=== PATIENT | male | born 1965 | race Two or more races ===

== ENCOUNTER → 2016-10-08 | Outpatient (CLI) | payer SELFPAY ==
--- NOTE | 2016-10-08 15:56 | DI ---
PA /LATERAL CHEST X-RAY, 10/08/2016 3:03 PM : Clinical History: Cough Previous Exam: January 24, 2016 There is no acute soft tissue or bony abnormality. Heart size is normal. Lungs are clear. Mediastinal structures are normal. There are no pulmonary nodules. There is subsegmental atelectasis in the right lung base with some stable subsegmental atelectasis in the left lung base. IMPRESSION: New subsegmental atelectasis in the right lung base otherwise unremarkable.
== END ==
LOC: RAD 15:06
PROVIDERS: ATTEND Physician Assistant Medical
DX: R05 Cough (principal); R06.02 Shortness of breath
CPT/HCPCS: 71020

== ENCOUNTER 2018-05-13 10:44 | Observation (INO) ==
[2018-05-13] MEDS ORDERED: Sodium Chloride 0.9% 1,000 ML PRIMARY IV ONE (11:42)
[2018-05-13 11:55] LABS: BASOPHILS # (AUTO) 0.05 10*3/UL; BASOPHILS % (AUTO) 0.4 % (0-1); EOSINOPHILS # (AUTO) 0.29 10*3/UL; EOSINOPHILS % (AUTO) 2.2 % (0-8); Hematocrit [HCT] 47.3 % (42.0-52.0); Hemoglobin [HGB] 16.3 g/dL (14.0-18.0); LYMPHOCYTES # (AUTO) 2.54 10*3/uL; MEAN CORPUSCULAR HGB CONC 34.5 g/dL (33-37); MEAN CORPUSCULAR VOLUME 90.1 FL (80-90); MEAN PLATELET VOLUME 9.3 FL (7.4-12.2); MONOCYTES # (AUTO) 0.72 10*3/UL (0.3-0.8); MONOCYTES % (AUTO) 5.6 % (5-15); NEUTROPHILS # (AUTO) 9.26 10*3/UL; NEUTROPHILS % (AUTO) 71.4 % (50-80); RED BLOOD COUNT 5.25 10^6/uL (4.70-6.10)
[2018-05-13 12:11] LABS: BLOOD UREA NITROGEN 12 mg/dL (7-22); BUN/CREATININE RATIO 13.33 (6-20); SERUM ALBUMIN 4.2 g/dL (3.5-4.8)
[2018-05-13 12:14] LABS: PLATELET MORPHOLOGY COMMENT NORMAL MORPHOLOGY (NORM); RBC MORPHOLOGY COMMENT NORMAL MORPHOLOGY (NORM); WBC MORPHOLOGY COMMENT NORMAL MORPHOLOGY (NORM)
--- NOTE | 2018-05-13 13:06 | DI ---
MRI BRAIN SCAN WITHOUT IV CONTRAST, 05/13/2018 11:45 AM: Clinical History: stroke symptoms; left sided weakness; off balance Previous Exam: None at this facility. Sequences: Sagittal T1; Axial YA T2 and FLAIR. Axial diffusion weighted images with ADC mapping were also performed. The 4th, 3rd, and lateral ventricles are of normal size, shape, position, and contour for this patien t's age. There are are a few 3 mm punctate foci of hyperintensity located in each frontal lobe and in the left basal ganglia of uncertain etiology or clinical significance. There is no evidence of an ac reese hemorrhagic or bland infarct. There is no cerebellar pontine angle mass. Mild cerebral atrophy is present. Diffusion weighted imaging with ADC mapping is normal. There are no extracerebral mantels o r shift of the midline structures. The paranasal sinuses are normal. Readin. There is no acute hemorrhagic or bland infarct. No cerebellar pontine angle mass is noted. There is no mass in the posterior fossa or evidence of a medullary infarct to account for the patient's bal ance abnormalities. 2. There are small punctate hyperintensities in the white matter of both frontal lobes and there is a similar lesion in the left basal ganglia. The origin and clinical significance of these findings is uncertain. 3. Mild cerebral atrophy. 4. Diffusion weighted imaging with ADC mapping is normal.
--- NOTE | 2018-05-13 13:15 | DI ---
LEFT KNEE, 05/13/2018 11:47 AM: Clinical History: Left knee pain. Previous Exam: 11/29/2017. 3 views are submitted. There is no acute soft tissue, osseous, or joint abnormality. There are puncta te calcifications anteriorly in the intercondylar notch and these were present on the prior exam. The y would be consistent with previous injury to the ACL. Reading: There is no acute fracture or dislocation. There are calcifications in the intercondylar notch probab ly related to a previous injury to the ACL.
[2018-05-13 13:41] LABS: BILIRUBIN,URINE NEGATIVE (NEG); CLARITY,URINE CLEAR (CLEAR); COLOR,URINE YELLOW (Y); OCCULT BLOOD,URINE Trace-intact (NEG); PROTEIN,URINE NEGATIVE (NEG); UROBILINOGEN,URINE 0.2 EU/dL (0.2)
[2018-05-13 13:57] LABS: GLUCOSE, URINE (UA) >=1000 mg/dL (NEG); SQUAMOUS EPITHELIAL CELL,UR RARE; URINE SAMPLE TYPE CLEAN CATCH URINE
--- NOTE | 2018-05-13 14:24 | DI ---
AP /LATERAL CHEST, 05/13/2018 11:42 AM : Clinical History: Cough. Stroke symptoms. Previous Exam: 10/08/2016. Multiple films are obtained and there is respiratory motion artifact on all films. There is no obviou s acute soft tissue or bony abnormality. Heart size is normal. There is discoid atelectasis in the ri ght costophrenic angle. No acute infiltrate or effusion is present. Mediastinal structures are normal . The films cannot be evaluated adequately for identification of small nodules. There is no large portia g mass present. Readin. Suboptimal study because of respiratory motion artifacts. 2. There is no acute infiltrate or effusion.
[2018-05-13] MEDS ORDERED: CALCIUM CARBONATE 500 MG (TUMS) CHEWABLE TABLET PO PRN (16:34)
[2018-05-13] MEDS ORDERED: ONDANSETRON 4 MG/2 ML VIAL IVP PRN (16:34)
[2018-05-13] MEDS ORDERED: ACETAMINOPHEN 325 MG TABLET PO PRN (16:34)
[2018-05-13] MEDS ORDERED: DOCUSATE 100 MG CAPSULE PO PRN (16:34)
[2018-05-13] MEDS ORDERED: LIDOCAINE W/ SODIUM BICARB 0.5 ML SYR SUBD PRN (16:34)
[2018-05-13] MEDS ORDERED: Sodium Chloride 0.9% 1,000 ML PRIMARY IV SCH (16:45)
--- NOTE | 2018-05-13 16:48 | PDOC ---
HPI - History of Present Illness Date of Service: 05/13/18 Time of Service: 16:00 Chief Complaint: Unsteadiness when standing up that started today History of Present Illness: This is a 52 years old male with medical history significant for history of diabetes, hypertension, sleep apnea on CPAP, depression/anxiety, asthma, gout admission in 2016 for perforated diverticular disease that needed colostomy who presented to the hospital with history of unsteadiness that started this morning. He said he woke up this morning about 4 AM because of some pain in his knee and back he took his medications and that included a new medication ertugliflozin that was prescribed by Dr. Bronson and today was the first time that he took it a few hours after that as he stood up he felt unsteady on his feet and then he fell back and sat on the other chair his thinking was not clear he had difficulty saying the words he felt confused and because of that he was brought to the ER. He had multiple tests they were negative and because of persistent symptoms he was admitted. He said he's feeling better now in terms of his thinking it is more clear and he said earlier he couldn't tell the whole story of what happened. He still feel unsteady on his feet and dizzy he said when he stands up but not while laying in bed. He denied chest pain or shortness of breath. He think maybe the medication which he took for the first time responsible for his symptoms. This is the first time that he had these symptoms. He said he is weak on his left leg since he had a fracture of the patella back in December. He doesn't think that he is weak in his arms. No vomiting or nausea or diarrhea. Past Medical History Medical History: 1. Diabetes mellitus type II. 2. Depression/anxiety the patient was placed on Lamictal and Ativan in the setting of his 's 5 years ago. He does not have a seizure disorder. 3. HTN for an unknown period of time. 4. Gout. 5. Sleep apnea. 6. Diabetic neuropathy. 7. Hyperlipidemia. 8. Diverticulitis. 9. Asthma/bronchitis. 10. Perforated diverticular disease that needed emergency surgery in 2016 he ended up with a colostomy Surgical History: 1. partial colectomy with end colostomy and closure of distal segment. (Clemente procedure). 2. Appendectomy Pertinent Family History: Significant for diabetes Past Social History: . Currently not working and he is living with his daughter. He used to smoke now sometimes chew tobacco and occasionally drinks no drugs. Tobacco Use: Former Smoker In the Past 12 Months, Have Used or Abuse Any of the Following Substance: None Medication / Allergies Home Medications: Home Medications 3 Medication Instructions Recorded Confirmed Type Albuterol Sulfate [Proair Hfa] 2 puff INH Q4-6H PRN #3 inh 05/07/17 05/13/18 History bisoprolol 5 1 tab PO QDAY #30 tab 11/13/17 05/13/18 Rx mg-hydrochlorothiazide 6.25 mg tablet lamotrigine 200 mg tablet 200 mg PO BID #60 tab 11/18/17 05/13/18 Rx meloxicam 15 mg tablet 15 mg PO QDAY 12/18/17 05/13/18 History duloxetine 30 mg capsule,delayed 30 mg PO BID #60 cap 03/03/18 05/13/18 Rx release gabapentin 300 mg capsule 600 mg PO TID #180 cap 04/16/18 05/13/18 Rx ertugliflozin 5 mg tablet 5 mg PO DAILY #90 Samples 05/07/18 05/13/18 Sample lorazepam 2 mg tablet 2 mg PO TID PRN #90 tab 05/07/18 05/13/18 Rx zolpidem 10 mg tablet 5 mg PO QHS PRN #30 tab 05/07/18 05/13/18 Rx Allergies/Adverse Reactions: Allergies 3 Allergy/AdvReac Type Severity Reaction Status Date / Time No Known Drug Allergies Allergy NOT Verified 05/13/18 11:12 APPLICABLE Review of Systems - Review of Systems All Systems: Reviewed & No Additional Complaints Except as Stated Exam - Vitals Vital Signs: Vital Signs Temperature 97.3 F Temperature Source Temporal Artery Scan Pulse Rate [Pulse Oximeter] 74 Pulse Rate 75 Respiratory Rate 20 Blood Pressure [Right Arm] 144/89 Blood Pressure 142/79 Pulse Ox 93 Oxygen Delivery Method Room Air Height 5 ft 10 in Weight 326 lb - General General Appearance: No Acute Distress, Cooperative, Morbidly Obese - Head Head Exam: Normal Inspection, Atraumatic - Eye Eye Exam: POSITIVE: Normal Appearance - ENT ENT Exam: POSITIVE: Normal Exam - Neck Neck Exam: Normal Inspection - Respiratory Respiratory Exam: POSITIVE: Clear to Auscultation - Bilaterally - Cardiovascular Cardiovascular Exam: POSITIVE: RRR - GI/Abdominal GI/Abdominal Exam: POSITIVE: Normal Bowel Sounds, Non Tender, Non Distended, Soft, No Organomegaly Additional GI/Abdominal Exam Details: Colostomy in place - Rectal Rectal Exam: POSITIVE: Deferred - External Exam: POSITIVE: Deferred - Extremities Extremities Exam: POSITIVE: Normal Inspection - Back Back Exam: POSITIVE: Normal Inspection - Neurological Neurological Exam: POSITIVE: Alert, Oriented x 3, CN II-XII Intact, No Facial Droop, Speech Intact / Clear Additional Neurological Exam Details: On neurological examination he has some weakness in the left leg that included flexion and knee flexion and extension and dorsal flexion and extension but he attributed that to the incident that happened back in December when he fell and broke his patella. There is some slight difference in hand material specialist on the left over to himself he doesn't think that he is weak on the left side. - Psychiatric Psychiatric Exam: POSITIVE: Normal Affect - Integumentary Integumentary Exam: POSITIVE: Normal Color Results - Labs CBC and BMP: 05/13/18 11:45 05/13/18 11:45 - Imaging Status: Report Reviewed by Me (MRI 1. There is no acute hemorrhagic or bland infarct. No cerebellar pontine angle mass is noted. There is no mass in the posterior fossa or evidence of a medullary infarct to account for the patient's balance abnormalities. 2. There are small punctate hyperintensities in the white matter of both frontal lobes and there is a similar lesion in the left basal ganglia. The origin and clinical significance of these findings is uncertain. 3. Mild cerebral atrophy. 4. Diffusion weighted imaging with ADC mapping is normal. Knee X ray There is no acute fracture or dislocation. There are calcifications in the intercondylar notch probably related to a previous injury to the ACL. Chest X ray 1. Suboptimal study because of respiratory motion artifacts. 2. There is no acute infiltrate or effusion.) Assessment and Plan - Patient Problems (1) Dizziness Current Visit: Yes Status: Acute Comment: His dizziness and unsteadiness is of unclear etiology. Not clear whether this medication is responsible for it I think we'll take him off the medication I told him that will watch him give him some fluid will put him back on the rest of his medication and then will see how his symptoms tomorrow. We' ll ask physical therapy to work with him tomorrow. We'll check orthostatics. Code(s): R42 - Dizziness and giddiness (2) Benign hypertension Current Visit: No Status: Acute Onset Date: 01/19/14 Comment: Continue previous medications Code(s): I10 - Essential (primary) hypertension (3) Diabetes mellitus Current Visit: No Status: Acute Onset Date: 01/19/14 Comment: We'll watch his blood sugar and will put him on metformin he said he ran out on the metformin few days ago. Code(s): E11.9 - Type 2 diabetes mellitus without complications Qualifiers: Diabetes mellitus type: type 2 Diabetes mellitus group home insulin use: without group home use Diabetes mellitus complication status: without complication Qualified Code(s): E11.9 - Type 2 diabetes mellitus without complications (4) Anxiety Current Visit: Yes Status: Acute Comment: Continue his previous medications Code(s): F41.9 - Anxiety disorder, unspecified
[2018-05-13] MEDS: metFORMIN 500 MG TABLET PO SCH (17:15)
--- NOTE | 2018-05-13 17:36 | EKG ---
[address] [address] Measurements Intervals [place] Rate: 76 P: 38 WI: 148 QRS: 1 QRSD: 95 T: 57 QT: 364 QTc: 395 Interpretive Statements SINUS RHYTHM Compared to ECG 01/27/2016 08:23:09 Short [place] interval no longer present Electronically Signed On 05-13-18 17:48:21 MDT by Rip Thomas [email or web address]
[2018-05-13] MEDS: GABAPENTIN 300 MG CAPSULE PO SCH (20:57)
[2018-05-13] MEDS: lamoTRIgine 100 MG TABLET PO SCH (20:57)
[2018-05-13] MEDS: LORazepam 1 MG TABLET PO PRN (20:57)
[2018-05-13] MEDS ORDERED: ZOLPIDEM 10 MG TABLET PO PRN (21:00)
[2018-05-13] MEDS: IPRATROPIUM/ALBUTEROL SULFATE 3 ML NEB NEB PRN (22:34)
[2018-05-14] MEDS ORDERED: GUAIFENESIN 600 MG TABLET PO PRN (02:02)
[2018-05-14 05:19] LABS: BASOPHILS # (AUTO) 0.05 10*3/UL; BASOPHILS % (AUTO) 0.5 % (0-1); EOSINOPHILS # (AUTO) 0.33 10*3/UL; EOSINOPHILS % (AUTO) 3.2 % (0-8); Hematocrit [HCT] 40.6 % (42.0-52.0); Hemoglobin [HGB] 13.9 g/dL (14.0-18.0); LYMPHOCYTES # (AUTO) 2.85 10*3/uL; MEAN CORPUSCULAR HEMOGLOBIN 31.3 PG (27-31); MEAN CORPUSCULAR HGB CONC 34.2 g/dL (33-37); MEAN CORPUSCULAR VOLUME 91.4 FL (80-90); MEAN PLATELET VOLUME 9.3 FL (7.4-12.2); MONOCYTES # (AUTO) 0.62 10*3/UL (0.3-0.8); NEUTROPHILS # (AUTO) 6.32 10*3/UL; NEUTROPHILS % (AUTO) 61.7 % (50-80); PLATELET MORPHOLOGY COMMENT NORMAL MORPHOLOGY (NORM); RBC MORPHOLOGY COMMENT NORMAL MORPHOLOGY (NORM); RED BLOOD COUNT 4.44 10^6/uL (4.70-6.10); WBC MORPHOLOGY COMMENT NORMAL MORPHOLOGY (NORM)
--- NOTE | 2018-05-14 06:01 | PDOC ---
General Adult HPI - General Chief Complaint: General Medical Stated Complaint: UNSTEADY ON FEET Date Seen by Provider: 05/13/18 Time Seen by Provider: 10:50 Source: POSITIVE: Patient, EMS, Other (Father) Exam Limitations: POSITIVE: No limitations Nurse's Notes Reviewed & Considered: Yes EMS Report Reviewed & Considered: Verbal - History of Present Illness Initial Comment: The patient is a 52-year-old male. He is brought to the emergency room by ambulance. He states that this morning he attempted to stand up and states that his "balance was off" and he could not ambulate. He also describes generalized weakness and states that he is "too weak to stand". He denies any sensation of spinning or vertigo. No head chest or abdominal pain. He also complains of an exacerbation of chronic left knee pain, which he states he injured several months ago when he slipped on the ice attempting to get out of his truck. He states he has a sensation of confusion and "I have a hard time remembering things. Patient has a colostomy due to a perforated bowel 2 years ago. He has a history of morbid obesity. No difficulty swallowing or speaking. He thinks he may have some weakness to his left upper extremity and he describes "tremors" to his right hand. No fevers or chills. He has not had any recent falls. He does complain of a vague headache, poorly localized. No chest or abdominal pain. Have you received a tetanus shot in the past 10 years?: Unknown Body Location Affected: REPORTS: Lower Extremity (L) (Left knee), Other ( Generalized weakness and "loss of balance"; states he's not able to walk.) Timing: REPORTS: Constant Duration: <24 hours Severity: Moderate Quality: REPORTS: "Pain" (Left knee) Context: REPORTS: Standing (Onset when standing this morning) Modifying Factors: improves with: Movement, Upright Position Similar Symptoms Previously: No Recent Care Received: REPORTS: Denies Any Prior Injuries Related to Current Complaint?: No - Patient Home Medications Home Medications: Home Medications Albuterol Sulfate [Proair Hfa] 2 puff INH Q4-6H PRN #3 inh 05/07/17 bisoprolol 5 mg-hydrochlorothiazide 6.25 mg tablet 1 tab PO QDAY #30 tab lamotrigine 200 mg tablet 200 mg PO BID #60 tab 11/18/17 meloxicam 15 mg tablet 15 mg PO QDAY 12/18/17 duloxetine 30 mg capsule,delayed release 30 mg PO BID #60 cap 03/03/18 gabapentin 300 mg capsule 600 mg PO TID #180 cap 04/16/18 lorazepam 2 mg tablet 2 mg PO TID PRN #90 tab 05/07/18 zolpidem 10 mg tablet 5 mg PO QHS PRN #30 tab 05/07/18 - Patient Allergies Allergies/Adverse Reactions: Allergies 3 Allergy/AdvReac Type Severity Reaction Status Date / Time No Known Drug Allergies Allergy NOT Verified 05/13/18 11:12 APPLICABLE Past Medical History - heen HEENT History: Denies History Cardiovascular History: Hypertension Respiratory History: Asthma, COPD, Sleep Apnea, Home CPAP Use Gastrointestinal History: Diverticulitis Additional Gastrointestinal History: Hx of spontaneous bowel perforation...the first perforation did not result in surgery. The second perforation in January 2016 required bowel resection with colostomy. Genitourinary History: Denies History Endocrine History: Type 2 Diabetes (oral) Musculoskeletal History: Other (please comment) Prosthesis or Implant: No Additional Musculoskeletal History: fx left patella Neurological History: Other (please comment) Additional Neurological History: pt has neuropathy Blood Disorders: Denies History Psychiatric History: Anxiety Disorders History of Sexually Transmitted Diseases: No Cancer History: Denies History In Past Year Been Physically Harmed or Verbally Threatened: No History of MDRO: No History of Other Communicable Diseases: No Tobacco Use: Former Smoker Alcohol Use: Occasionally In the Past 12 Months, Have Used or Abuse Any Substance: None Previous Surgical History: No Type / Date of Surgery: COLOSTOMY Anesthesia Reactions: No Malignant Hyperthermia: No Significant Family History: No pertinent family hx Past Medical History Reviewed: Reviewed - No Changes ROS - Limitations ROS Limitations: No Limitations Constitution: REPORTS: Weakness Cardiovascular: REPORTS: Denies Cardiac Symptoms Respiratory: REPORTS: Denies Resp Symptoms Neurological: REPORTS: Confusion, Headache, Difficulty Walking (Due to being "off balance"), Weakness, Other (Difficulty thinking and confusion.) Gastrointestinal: REPORTS: Denies GI Symptoms Endocrine: REPORTS: Denies Symptoms Musculoskeletal: REPORTS: Other (Generalized weakness) Genitourinary: REPORTS: Denies Symptoms Eyes: REPORTS: Denies Symptoms ENT: REPORTS: Denies Symptoms Skin: REPORTS: Denies Skin Symptoms Lympathic: REPORTS: Denies Lympathic Symptoms Immunologic: POSITIVE: Denies Symptoms Psychiatric: POSITIVE: Denies Psych Symptoms General Adult Exam - General Appearance General Appearance: POSITIVE: Alert, Cooperative, No Acute Distress, No Evidence of Trauma - HEENT HEENT: POSITIVE: Head Inspection Nml, Eyes Inspection Nml, Ears Inspection Nml, Nose Inspection Nml, Oral/Dental Inspect. Nml, Pharynx Inspect. Nml, PERRL, EOMI , Other (No abnormal nystatin this. Unable to do Hillpoint-Hallpike procedure due to patient's obesity) - Pupils Pupil Size: 3 mm: Bilateral (PERRLA) - Neck Neck: POSITIVE: Normal Inspection, Thyroid Normal - Respiratory Respiratory: POSITIVE: No Respiratory Distress, Breath Sounds Normal, Chest Non- Tender - Cardiovascular Cardiovascular: POSITIVE: Regular Rate & Rhythm, No Murmur, No Gallop, PMI Normal Peripheral Pulses: Radial (R): 2+, Radial (L): 2+, Dorsalis-pedis (R): 2+, Dorsalis-pedis (L): 2+ - Abdomen Abdomen: Soft: (All Quadrants), Normal Bowel Sounds: (All Quadrants), Denies Tenderness: (All Quadrants), No Splenomegaly: (All Quadrants), No Hepatomegaly: (All Quadrants), No Guarding: (All Quadrants), No Rebound: (All Quadrants), No Palpable Pulse: (All Quadrants), No Palpabale Mass: (All Quadrants), No Distention: (All Quadrants), No Rigidity: (All Quadrants) Additional Abdominal Details: Colostomy bag left lower abdomen - Back Back: POSITIVE: Normal Inspection. NEGATIVE: CVA Tenderness, Thoracic Tenderness, Lumbosacral Tenderness - Skin Skin: POSITIVE: Normal Color, Warm, Dry, No Rash - Extremities Extremity: Non-Tender: (RUE), (LUE), (RLE), Normal ROM: (RUE), (LUE), (RLE), Normal Inspection: (All Extremities), Pelvis Stable: (All Extremities), Normal Tendon Exam: (All Extremities) Additional Extremities Details: Examination of the extremities normal except for pain on palpation about the anterior aspect of the left knee. No effusions. No erythema or warmth. Range of motion of the left knee is limited in flexion and extension due to pain. Patient states he has chronic pain to his left knee and was reportedly told that he had a fracture to his left patella. - Neurological / Psychological Neurological: POSITIVE: Oriented X3, model photographers' Normal As Tested, Sensation Normal, Weakness (Left hand grasp), Unsteady Gait (We attempted to ambulate the patient. Patient states he was not able to ambulate due to weakness and "loss of balance "), Motor Loss (Possibly some weakness on left hand grasp). NEGATIVE : Affect Apporpriate (Anxious), Motor Normal (Possibly some mild weakness on left hand grasp), Disoriented To Person, Disoriented To Place, Disoriented To Time, Sensory Loss, Facial Droop, Speech Abnormality, Cognition Abnormality, Ataxic Reflexes: Patellar (L): 2+, Radial (R): 2+ General Adult Progress - Results Reviewed by me Xrays/CTs/US Reviewed by me: Yes Discussed with Radiologist: Yes Radiology Findings: MRI of brain without contrast normal. X-ray left knee shows no fractures or dislocations. Lab Results Reviewed by Me: Yes Lab Results:: Laboratory Results 3 05/13/18 05/13/18 05/13/18 11:45 11:45 11:45 WBC 12.97 H RBC 5.25 Hgb 16.3 Hct 47.3 MCV 90.1 H MCH 31.0 MCHC 34.5 RDW Std Deviation 44.1 RDW Coeff of Shefali 13.5 Plt Count 313 MPV 9.3 Immature Gran % (Auto) 0.8 Neut % (Auto) 71.4 Lymph % (Auto) 19.6 [place] % (Auto) 5.6 Eos % (Auto) 2.2 Baso % (Auto) 0.4 Immature Gran # (Auto) 0.11 Neut # (Auto) 9.26 Lymph # (Auto) 2.54 [place] # (Auto) 0.72 Eos # (Auto) 0.29 Baso # (Auto) 0.05 WBC Morphology Comment Normal morphology Plt Morphology Comment Normal morphology RBC Morph Comment Normal morphology Sodium 139 Potassium 4.4 Chloride 98 Carbon Dioxide 28 Anion Gap 13 BUN 12 Creatinine 0.9 Estimated GFR > 60 BUN/Creatinine Ratio 13.33 Glucose 281 H Calculated Osmolality 297.0 H Calcium 9.3 Magnesium 1.8 Total Bilirubin 0.3 AST 86 H ALT 65 Alkaline Phosphatase 204 H Total Creatine Kinase 66 Troponin I < 0.012 C-Reactive Protein 2.4 H NT-Pro-B Natriuret Pep 102 Total Protein 8.1 H Albumin 4.2 Globulin 3.9 Albumin/Globulin Ratio 1.00 L Ur Collection Type Urine Color Urine Clarity Urine pH Ur Specific [place] Urine Protein Urine Glucose (UA) Urine Ketones Urine Occult Blood Urine Nitrate Urine Bilirubin Urine Urobilinogen Ur Leukocyte Esterase Urine RBC Urine WBC Ur Squamous Epith Cells Ur Renal Epithelial Cell Urine Crystals Urine Bacteria Urine Casts Urine Mucus Urine Trichomonas Urine Yeast Ur Culture Indicated? Group A Strep Screen 3 05/13/18 05/13/18 12:47 13:37 WBC RBC Hgb Hct MCV MCH MCHC RDW Std Deviation RDW Coeff of Shefali Plt Count MPV Immature Gran % (Auto) Neut % (Auto) Lymph % (Auto) [place] % (Auto) Eos % (Auto) Baso % (Auto) Immature Gran # (Auto) Neut # (Auto) Lymph # (Auto) [place] # (Auto) Eos # (Auto) Baso # (Auto) WBC Morphology Comment Plt Morphology Comment RBC Morph Comment Sodium Potassium Chloride Carbon Dioxide Anion Gap BUN Creatinine Estimated GFR BUN/Creatinine Ratio Glucose Calculated Osmolality Calcium Magnesium Total Bilirubin AST ALT Alkaline Phosphatase Total Creatine Kinase Troponin I C-Reactive Protein NT-Pro-B Natriuret Pep Total Protein Albumin Globulin Albumin/Globulin Ratio Ur Collection Type Clean catch urine Urine Color Yellow Urine Clarity Clear Urine pH 6.0 Ur Specific [place] <=1.005 Urine Protein Negative Urine Glucose (UA) >=1000 Urine Ketones Negative Urine Occult Blood Trace-intact H Urine Nitrate Negative Urine Bilirubin Negative Urine Urobilinogen 0.2 Ur Leukocyte Esterase Negative Urine RBC None Urine WBC None Ur Squamous Epith Cells Rare Ur Renal Epithelial Cell None Urine Crystals None Urine Bacteria None Urine Casts None Urine Mucus None Urine Trichomonas None Urine Yeast None Ur Culture Indicated? Culture not set Group A Strep Screen Negative CBC and BMP: 05/14/18 04:49 05/13/18 11:45 EKG Interpreted/Reviewed By Me:: Yes (normal) EKG Interpretation:: POSITIVE: Normal Sinus Rhythm, Normal Rate, Normal Intervals, Normal [place], Normal QRS, Normal ST/T - Patient's Progress Pain Medication Addressed: POSITIVE: No School/Work Release Addressed: POSITIVE: Not Applicable Re-Examine Time: 14:05 Re-Examine Comment: Patient's condition is essentially unchanged. Attempts to ambulate the patient was unsuccessful due to "weakness and loss of balance ". Status: POSITIVE: Unchanged, Re-Examined - Consult Consult (If Yes, Name of Consulting MD & Time Called): Yes (Dr. Garcia, hospitalist, 1964) Consulting MD will see pt:: POSITIVE: [facility] Admit Counseled: POSITIVE: Patient, Family, RE: Lab Results, RE: Radiology Results, RE : DX, RE: Need for F/U Patient Care Time - Estimated PCT Patient Care Time (In Minutes): 60 Vital Signs - Recent Vital Signs Vital Signs: Vital Signs (Last 8 hours) Temp Pulse Pulse Resp BP Pulse Ox 05/14/18 05:00 97.2 F 78 20 124/66 91 05/14/18 03:00 88 05/14/18 01:00 97.2 F 91 18 161/82 93 05/13/18 23:00 86 05/13/18 22:35 76 20 95 05/13/18 22:34 74 20 94 - VS Reviewed Vital Signs Reviewed: Yes Discharge Clinical Impression: Morbid obesity, Weakness, Balance disorder Diabetes Qualifiers: Diabetes mellitus type: type 2 Diabetes mellitus career services manager insulin use: without career services manager use Diabetes mellitus complication status: without complication Qualified Code(s): E11.9 - Type 2 diabetes mellitus without complications Discharge Disposition: Admit to Inpatient Condition: Fair Date Decision to Admit to Inpatient: 05/13/18 Time Decision to Admit to Inpatient: 14:00
[2018-05-14] MEDS: metFORMIN 500 MG TABLET PO SCH (06:41)
[2018-05-14] MEDS: LORazepam 1 MG TABLET PO PRN (06:52)
[2018-05-14] MEDS: lamoTRIgine 100 MG TABLET PO SCH (08:29)
[2018-05-14] MEDS: GABAPENTIN 300 MG CAPSULE PO SCH (08:29)
[2018-05-14] MEDS ORDERED: DULOXETINE 30 MG CAPSULE PO SCH (09:00)
[2018-05-14] MEDS ORDERED: HCTZ PO SCH (09:00)
[2018-05-14] MEDS ORDERED: BISOPROLOL FUMARATE PO SCH (09:00)
[2018-05-14] MEDS: IPRATROPIUM/ALBUTEROL SULFATE 3 ML NEB NEB PRN (09:35)
[2018-05-14 09:37] VITALS: RESP 16; O2SAT 98
[2018-05-14 10:25] VITALS: BP 148/77; TEMP 97.8
--- NOTE | 2018-05-14 10:40 | DCSUMMARY ---
Hospitalization Summary Hospital Course: Final Discharge Diagnosis: Current Visit Problems Problem Status Onset Code Dizziness Acute R42 Anxiety Acute F41.9 Weakness Acute R53.1 Balance disorder Acute R26.89 Morbid obesity Acute 01/19/14 E66.01 Diabetes mellitus Acute 01/19/14 E11.9 Diagnostic Data, Laboratory Data, and Procedures of Signifigance: Laboratory Results 05/13/18 05/13/18 05/13/18 Range/Units 11:45 11:45 11:45 WBC 12.97 H (4.8-10.8) 10^3/uL RBC 5.25 (4.70-6.10) 10^6/uL Hgb 16.3 (14.0-18.0) g/dL Hct 47.3 (42.0-52.0) % MCV 90.1 H (80-90) FL MCH 31.0 (27-31) PG MCHC 34.5 (33-37) g/dL RDW Std Deviation 44.1 (39-50) fL RDW Coeff of Shefali 13.5 (11.5-14.5) % Plt Count 313 (140-350) 10*3/uL MPV 9.3 (7.4-12.2) FL Immature Gran % (Auto) 0.8 (0-5) % Neut % (Auto) 71.4 (50-80) % Lymph % (Auto) 19.6 (10-50) % Harper % (Auto) 5.6 (5-15) % Eos % (Auto) 2.2 (0-8) % Baso % (Auto) 0.4 (0-1) % Immature Gran # (Auto) 0.11 10*3/UL Neut # (Auto) 9.26 10*3/UL Lymph # (Auto) 2.54 10*3/uL Harper # (Auto) 0.72 (0.3-0.8) 10*3/UL Eos # (Auto) 0.29 10*3/UL Baso # (Auto) 0.05 10*3/UL WBC Morphology Comment Normal morphology (NORM) Plt Morphology Comment Normal morphology (NORM) RBC Morph Comment Normal morphology (NORM) Sodium 139 (135-145) meq/L Potassium 4.4 (3.8-5.2) meq/L Chloride 98 (98-112) meq/L Carbon Dioxide 28 (23-33) meq/L Anion Gap 13 (5-20) BUN 12 (7-22) mg/dL Creatinine 0.9 (0.70-1.50) mg/dL Estimated GFR > 60 (>60 ml/min/1.73m(2)) BUN/Creatinine Ratio 13.33 (6-20) Glucose 281 H (78-110) mg/dL Calculated Osmolality 297.0 H (267-292) mOsm/kg Calcium 9.3 (8.7-10.7) mg/dL Magnesium 1.8 (1.6-2.4) mg/dL Total Bilirubin 0.3 (0.3-1.2) mg/dL AST 86 H (21-57) IU/L ALT 65 (21-72) IU/L Alkaline Phosphatase 204 H (38-126) IU/L Total Creatine Kinase 66 (55-170) IU/L Troponin I < 0.012 (< 0.040) ng/mL C-Reactive Protein 2.4 H (0.0-0.9) mg/dL NT-Pro-B Natriuret Pep 102 (0-125) PG/ML Total Protein 8.1 H (6.1-8.0) g/dL Albumin 4.2 (3.5-4.8) g/dL Globulin 3.9 (2.50-4.10) g/dL Albumin/Globulin Ratio 1.00 L (1.3-2.0) mg/g Ur Collection Type Urine Color (Y) Urine Clarity (CLEAR) Urine pH (5.0-8.5) Ur Specific [place] (1.005-1.030) Urine Protein (NEG) mg/dl Urine Glucose (UA) (NEG) mg/dL Urine Ketones (NEG) Urine Occult Blood (NEG) Urine Nitrate (NEG) Urine Bilirubin (NEG) Urine Urobilinogen (0.2) EU/dL Ur Leukocyte Esterase (NEG) Urine RBC (NONE) /hpf Urine WBC (NONE) Ur Squamous Epith Cells (NONE) Ur Renal Epithelial Cell (NONE) Urine Crystals Urine Bacteria (NONE) Urine Casts (NONE) Urine Mucus (NONE) Urine Trichomonas (NONE) Urine Yeast (NONE) Ur Culture Indicated? Group A Strep Screen (NEGATIVE) 05/13/18 05/13/18 05/14/18 Range/Units 12:47 13:37 04:49 WBC 10.25 (4.8-10.8) 10^3/uL RBC 4.44 L (4.70-6.10) 10^6/uL Hgb 13.9 L (14.0-18.0) g/dL Hct 40.6 L (42.0-52.0) % MCV 91.4 H (80-90) FL MCH 31.3 H (27-31) PG MCHC 34.2 (33-37) g/dL RDW Std Deviation 44.9 (39-50) fL RDW Coeff of Shefali 13.7 (11.5-14.5) % Plt Count 294 (140-350) 10*3/uL MPV 9.3 (7.4-12.2) FL Immature Gran % (Auto) 0.8 (0-5) % Neut % (Auto) 61.7 (50-80) % Lymph % (Auto) 27.8 (10-50) % Harper % (Auto) 6.0 (5-15) % Eos % (Auto) 3.2 (0-8) % Baso % (Auto) 0.5 (0-1) % Immature Gran # (Auto) 0.08 10*3/UL Neut # (Auto) 6.32 10*3/UL Lymph # (Auto) 2.85 10*3/uL Harper # (Auto) 0.62 (0.3-0.8) 10*3/UL Eos # (Auto) 0.33 10*3/UL Baso # (Auto) 0.05 10*3/UL WBC Morphology Comment Normal morphology (NORM) Plt Morphology Comment Normal morphology (NORM) RBC Morph Comment Normal morphology (NORM) Sodium (135-145) meq/L Potassium (3.8-5.2) meq/L Chloride (98-112) meq/L Carbon Dioxide (23-33) meq/L Anion Gap (5-20) BUN (7-22) mg/dL Creatinine (0.70-1.50) mg/dL Estimated GFR (>60 ml/min/1.73m(2)) BUN/Creatinine Ratio (6-20) Glucose (78-110) mg/dL Calculated Osmolality (267-292) mOsm/kg Calcium (8.7-10.7) mg/dL Magnesium (1.6-2.4) mg/dL Total Bilirubin (0.3-1.2) mg/dL AST (21-57) IU/L ALT (21-72) IU/L Alkaline Phosphatase (38-126) IU/L Total Creatine Kinase (55-170) IU/L Troponin I (< 0.040) ng/mL C-Reactive Protein (0.0-0.9) mg/dL NT-Pro-B Natriuret Pep (0-125) PG/ML Total Protein (6.1-8.0) g/dL Albumin (3.5-4.8) g/dL Globulin (2.50-4.10) g/dL Albumin/Globulin Ratio (1.3-2.0) mg/g Ur Collection Type Clean catch urine Urine Color Yellow (Y) Urine Clarity Clear (CLEAR) Urine pH 6.0 (5.0-8.5) Ur Specific [place] <=1.005 (1.005-1.030) Urine Protein Negative (NEG) mg/dl Urine Glucose (UA) >=1000 (NEG) mg/dL Urine Ketones Negative (NEG) Urine Occult Blood Trace-intact H (NEG) Urine Nitrate Negative (NEG) Urine Bilirubin Negative (NEG) Urine Urobilinogen 0.2 (0.2) EU/dL Ur Leukocyte Esterase Negative (NEG) Urine RBC None (NONE) /hpf Urine WBC None (NONE) Ur Squamous Epith Cells Rare (NONE) Ur Renal Epithelial Cell None (NONE) Urine Crystals None Urine Bacteria None (NONE) Urine Casts None (NONE) Urine Mucus None (NONE) Urine Trichomonas None (NONE) Urine Yeast None (NONE) Ur Culture Indicated? Culture not set Group A Strep Screen Negative (NEGATIVE) History and Physical pertinent to Admission: Course of Hospitalization: This very nice 52-year-old gentleman with the past medical history significant for hypertension diabetes sleep apnea depression was just the start of the new medication for his diabetes ertuglifozin, was admitted the because of dizziness some confusion after taking the new med. MRI of his head the revealed no acute findings no CVA after looking up the side effects of this new medication and does cause orthostatic hypotension which is I believe what happened to the patient in the hospital he felt better all the symptoms disappeared and is back to his normal state of health. He will be holding his new meds which he got samples and will be following up with Dr. Bronson. He also had a x-ray of his knee which showed also no acute findings today he feels great no chest pain nausea vomiting dizziness confusion and has no other complaint Gen.: [No acute distress, alert, nontoxic] Heart: [Regular rate and rhythm, no murmurs, clicks, gallops, or rubs] Lungs: [Clear to auscultation bilaterally, breathing is nonlabored] Abdomen/GI: [Normal tones on auscultation, soft, nontender, nondistended] Musculoskeletal/extremities: [No clubbing, cyanosis, or edema] Vitals reviewed and are listed below Vital Signs (24 hrs) Temp Pulse Pulse Resp BP BP BP 05/14/18 09:36 83 16 05/14/18 09:35 82 16 05/14/18 09:00 97.8 F 85 20 148/77 05/14/18 05:00 97.2 F 78 20 124/66 05/14/18 03:00 88 05/14/18 01:00 97.2 F 91 18 161/82 05/13/18 23:00 86 05/13/18 22:35 76 20 05/13/18 22:34 74 20 05/13/18 21:00 97 F 81 16 159/76 05/13/18 19:40 159/70 05/13/18 19:00 74 05/13/18 15:25 97.3 F 74 20 144/89 05/13/18 15:20 97.7 F 75 16 142/79 05/13/18 11:00 98.4 F 86 16 144/83 05/13/18 10:46 98.4 F 86 16 144/83 BP BP Pulse Ox 05/14/18 09:36 98 05/14/18 09:35 98 05/14/18 09:00 90 05/14/18 05:00 91 05/14/18 03:00 05/14/18 01:00 93 05/13/18 23:00 05/13/18 22:35 95 05/13/18 22:34 94 05/13/18 21:00 90 05/13/18 19:40 138/56 156/93 05/13/18 19:00 05/13/18 15:25 93 05/13/18 15:20 94 05/13/18 11:00 94 05/13/18 10:46 94 Assessment and Plan: 1. As per discharge assessments above 2. Disposition: Home 3. Condition on discharge, stable and improved. 4. Diet: regular diet 5. Activities: resume normal activities 6. Follow-Up: 1. [PCP] 2. 7. Medications at the Time of Discharge: Home Medications 3 Medication Instructions Recorded Confirmed Type Albuterol Sulfate [Proair Hfa] 2 puff INH Q4-6H PRN #3 inh 05/07/17 05/13/18 History bisoprolol 5 1 tab PO QDAY #30 tab 11/13/17 05/13/18 Rx mg-hydrochlorothiazide 6.25 mg tablet lamotrigine 200 mg tablet 200 mg PO BID #60 tab 11/18/17 05/13/18 Rx meloxicam 15 mg tablet 15 mg PO QDAY 12/18/17 05/13/18 History duloxetine 30 mg capsule,delayed 30 mg PO BID #60 cap 03/03/18 05/13/18 Rx release gabapentin 300 mg capsule 600 mg PO TID #180 cap 04/16/18 05/13/18 Rx lorazepam 2 mg tablet 2 mg PO TID PRN #90 tab 05/07/18 05/13/18 Rx zolpidem 10 mg tablet 5 mg PO QHS PRN #30 tab 05/07/18 05/13/18 Rx metFORMIN Tab [Glucophage Tab] 500 mg PO C BK DIN tab 05/14/18 Rx 8. Time, care, counseling and coordination of care for this discharge is greater than 30 minutes. Exam - Vitals Vital Signs: Vital Signs Temperature 97.8 F Temperature Source Temporal Artery Scan Pulse Rate [Pulse Oximeter] 85 Pulse Rate 83 Respiratory Rate 16 Blood Pressure [Standing] 156/93 Blood Pressure [Sitting] 138/56 Blood Pressure [Lying] 159/70 Blood Pressure [Right Arm] 148/77 Blood Pressure 142/79 Pulse Ox 98 Oxygen Delivery Method Room Air Height 5 ft 10 in Weight 326 lb
--- NOTE | 2018-05-14 14:37 | PTI REPORT ---
Thank you for the referral of Carrillo Jay. He was seen on 05/14/18 for an inpatient evaluation secondary to generalized weakness. SUBJECTIVE: The patient is a 52-year-old male who was referred by Dr. Garcia for evaluation of his mobility. 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 He is Diabetic. He has a colostomy bag. He is currently uninsured. He had a fractured patella due to falls on the left knee approximately five months ago. He states four or five days ago he fell at home and is having some rib and abdominal pain due to that. He states he was hospitalized due to a change in his medication and he was unable to ambulate or have control of his lower extremities. The patient states that he has a long past history of low back pain and it is currently his limiting factor of being on his feet. PAST MEDICAL HISTORY: Past medical history can be found in the patient's medical record. OBJECTIVE FINDINGS: General observations: The patient was alert and oriented x3 in his room. The patient was pleasant and followed directions well. The patient is an obese male. Bed mobility: The patient was able to transfer from supine to sit independently. Transfers: The patient was able to transfer from sit to stand with stand by assistance. Ambulation: The patient ambulated approximately 250 feet with use of a walker. Range of motion/Strength: The patient demonstrates good range of motion of both upper extremities. The patient demonstrates a general one muscle grade weakness of the entire left upper extremity including shoulder, elbow, hand, and fingers. This is unexplained at this time. He demonstrates poor range of motion of the left knee from -4 degrees of extension to approximately 85 degrees of knee flexion due to his knee fracture. He states he did not attend rehab afterward due to no insurance. The patient has no abdominal tone or control due to his current colostomy or past abdominal surgeries. The patient' s right lower extremity strength is 4/5 and left lower extremity strength is 3+/ 5. Pain: The patient does complain of pain sometimes in the left ankle with certain motions that is very sharp, but goes away very quickly, indicating he may have a loose body in his talocrural joint. Balance: A Thornton score was assessed, but the patient was unable to get into the propre positions of the test due to his knee pain and back pain. Balance was fair to fair minus. He is doing well with a walker with wheels. ASSESSMENT: The patient is a 52-year-old male with extremely poor mobility resulting in past injuries including a fractured patella and possible mechanical derangement in his left ankle, and obesity. Other medical conditions have rendered him not wanting to be very mobile or active in life. The patient states that the walk he took with us this morning is as far as he's walked in five or six months. He states once he starts sweating, the seal of his colostomy comes off and presents its own set of problems. We had a nice discussion about how his general decline in mobility is contributing to his general decline in health as well and that we need to reverse the cycle. Problem List: Patient is a MODERATE fall risk Generalized balance Decreased mobility Short-Term Goals: To be met by discharge from inpatient: Patient will be able to transfer from bed to stand independently. Patient will be able to ambulate 500 feet with least restrictive assistive device independently and safely. Patient will demonstrate balance of good or greater. Patient will demonstrate lower extremity strength of 4/5 bilaterally. Long-Term Goals: To be met following discharge from inpatient: The therapist highly recommends the patient continues to attend some form of outpatient therapy to encourage strengthening and mobility for uppers, lowers, and general activity in order to proceed him forward in his goals for colostomy reversal as well as at some point returning to work. TREATMENT PLAN: Patient will be seen B.I.D during the week and one time per day over the weekend as an inpatient for general strengthening of uppers and lowers, ambulation, gait, and mobility. INITIAL TREATMENT: Treatment today consisted of the initial evaluation activities only. PAULINE
--- NOTE | 2018-05-17 10:56 | OTI REPORT ---
Thank you for the referral of Carrillo Jay. He was seen on 05/14/18 for an occupational therapy inpatient evaluation secondary to generalized weakness and decreased mobility. SUBJECTIVE: The patient is a 52-year-old male who is being seen secondary to dizziness, hypertension, Diabetes, depression, and anxiety. He does have sleep apnea. He had a colostomy bag placed in 2015. In January the patient fractured his patella and he says this has been causing some falls. He recently started a new medication called Ertugliflozin for blood sugar. He states his blood sugar was 360 when he was fasting overnight. He reports that he does not check his blood sugar like he should. His main complaint is that he sweats and then the base of his colostomy bag starts to come off. He states he has a difficult time working out because of this. The patient has been unemployed for 5 years. He states he is trying to get some temporary unemployment or disability; however, he still does not qualify for this. The patient states that Dr. Garcia states that his left side is a lot weaker than his right. The patient states he has had multiple falls. He fell backwards approximately 5 days ago in the bathroom. PAST MEDICAL HISTORY: Past medical history can be found in the patient's medical record. OBJECTIVE FINDINGS: Bed mobility: The patient was able to come from supine to sit independently. Range of motion: While sitting edge of bed, the patient had within functional limits for range of motion in his bilateral upper extremities. Strength: Strength on the right side throughout was 4+/5. Strength on the left side was noticeably weaker at 3+/5 for shoulder flexion/abduction, elbow flexion /extension, and wrist flexion/extension. Pain: The patient has complaints of pain. He rates his pain as an 8/10 on the verbal analog scale (0=no pain, 10=worst pain) in his back when walking. He also has left knee pain and slight left shoulder pain. Activities of daily living: The patient attempted dressing. He was able to don and doff socks on the right side, but is unable to do so on the left side secondary to his patellar pain and limited motion. Transfers: The patient was observed completing transfers to the toilet. He does need contact guard to min assist for balance but was able to transfer to the toilet with contact guard assist. The patient was independent with hygiene. ASSESSMENT: The patient does have some balance issues. He is not a very healthy person and performs very little activity throughout the day. He states that he typically only walks 5-10 feet at a time. His history of falls is not consistent; one time he told us he only fell once and later it was apparent that he had fallen a few different times within the last 6 months. The patient may benefit from some vocational rehabilitation as his goal is to return to work at some point. The patient would like to lose approximately 70 pounds in order to get the colostomy reversed. The patient verbalized an understanding of his goals, but his motivation is somewhat questionable. Problem List: Decreased ability to perform ADLs Generalized weakness Short-Term Goals: To be met by discharge from inpatient: Patient will improve overall strength, especially left upper extremity strength to 4+/5 throughout the shoulder, elbow, and wrist. Patient will be able to perform a toilet transfer and shower transfer independently. Patient will improve overall activity tolerance to 15-20 minutes of activity to improve his overall endurance for ADLs. Long-Term Goals: To be met following discharge from inpatient: Patient will be independent with all functional transfers and ADLs. TREATMENT PLAN: Patient will be seen B.I.D during the week and one time per day over the weekend as an inpatient to address the above goals and objectives. INITIAL TREATMENT: Treatment today consisted of the initial evaluation activities only. PAULINE
== END 2018-05-14 12:06 | disposition home or self-care (01) ==
LOC: MED/SURG 10:44 → ER 10:44
PROVIDERS: ADMIT Internal Medicine; ATTEND Internal Medicine